=== PATIENT | female | born 1995 | race Caucasian/White ===

== ENCOUNTER → 2024-04-23 | Outpatient (CLI) | payer OTHER ==
--- NOTE | 2024-04-23 17:03 | US ---
EXAMINATION TYPE: US thyroid st tissue head/neck DATE OF EXAM: 04/23/2024 COMPARISON: NONE CLINICAL INDICATION: Female, 28 years old with history of E04.0 Nontoxic diffuse goiter; enlarged thy roid TECHNIQUE: Grayscale and color Doppler imaging of the thyroid gland. FINDINGS: GLAND SIZE: Right Lobe: 5.3 x 1.6 x 1.5 cm Overall Parenchyma: homogeneous Left Lobe: 4.6 x 1.3 x 1.4 cm Overall Parenchyma: homogeneous Isthmus Thickness: .3 cm NODULES RIGHT: # of nodules measured on right: 0 LEFT: # of nodules measured on left: 0 ISTHMUS: # of nodules measured in the isthmus: 0 Bilateral neck scanned, no evidence of lymphadenopathy. IMPRESSION: Mildly enlarged diffusely heterogenous thyroid gland without discrete nodule. [facility], , 04/23/2024 5:00 PM
== END | disposition home or self-care (01) ==
LOC: RADUSWWP 16:23
PROVIDERS: ATTEND Otolaryngology
DX: E04.0 Nontoxic diffuse goiter (principal)
CPT/HCPCS: 76536

== ENCOUNTER 2024-11-17 04:11 | Inpatient (IN) | payer OTHER ==
[2024-11-17] MEDS ORDERED: TRANEXAMIC 1,000 MG/100ML-NACL 1,000 MG in EMPTY BAG 1 BAG IV PRN (04:41)
[2024-11-17] MEDS ORDERED: miSOPROStoL 200 MCG TAB RECTAL PRN (04:41)
[2024-11-17] MEDS ORDERED: METHYLERGONOVINE 0.2 MG/ML 1 ML AMP IM PRN (04:41)
[2024-11-17] MEDS ORDERED: miSOPROStoL 200 MCG TAB PO PRN (04:41)
[2024-11-17] MEDS ORDERED: CARBOPROST TROMETHAMINE 250 MCG/ML 1 ML AMP IM PRN (04:41)
[2024-11-17] MEDS ORDERED: TERBUTALINE 1 MG/ML VIAL SQ PRN (04:41)
[2024-11-17] MEDS ORDERED: OXYTOCIN 30 UNITS/500 ML NS 30 UNIT in SALINE 1 500ML.BAG IV SCH ×2 (04:45→06:30)
[2024-11-17] MEDS: LACTATED RINGERS 1,000 ML IV SCH (05:03)
[2024-11-17] MEDS: PENICILLIN G POTASSIUM 5,000,000 UNIT in SODIUM CHLORIDE 0.9% 100 ML IVPB ONE (05:04)
--- NOTE | 2024-11-17 05:12 | P.HPOB ---
History of Present Illness H&P Date: 11/17/24 Chief Complaint: 40 and 1 sevenths weeks, active labor Patient is a 29-year-old 1 para 0 admitted at 40 and 1 sevenths weeks as established by 9-week ultrasound. She is admitted to triage in active labor at 7 to 8 cm of dilation with all signs reassuring, category 1 heart rate tracing. Her has been uncomplicated though she is Rh- and received RhoGAM at 28 weeks. 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 Group B strep status is positive. Obstetrical history: 1 para 0 with current statistics listed in history of present illness. EDC of 11/16/2024 was established by 9-week ultrasound. Laboratory workup demonstrates a blood type of O- with a negative antibody is immune. The remainder of the laboratory workup was within normal limits. 1 hour Glucola was normal and group B strep status is negative. Gynecologic history: Unremarkable with no history of any infections to include STDs. Review of Systems Review of systems is confined to history of present illness. Past Medical History History of Any Multi-Drug Resistant Organisms: None Reported Smoking Status: Never smoker Medications and Allergies Home Medications Medication Instructions Recorded Confirmed Type Aspirin 81 mg PO DAILY 11/17/24 11/17/24 History Levothyroxine Sodium 75 mcg PO DAILY 11/17/24 11/17/24 History Allergies Allergy/AdvReac Type Severity Reaction Status Date / Time No Known Allergies Allergy Verified 11/17/24 04:21 Exam Intake and Output 11/16/24 11/16/24 11/17/24 14:59 22:59 06:59 Other: Weight 86.183 kg In general, this is a well-developed, well-nourished white female in some discomfort as she is in active labor. Her heart has a regular rhythm and rate without murmur. Her lungs are clear to auscultation bilaterally in all [place]. Her abdomen is gravid, nondistended, has normal active bowel sounds, is soft, nontender, and without any palpable masses aside from the uterine fundus. Her extremities are without any cyanosis, clubbing, or edema and are nontender to palpation bilaterally. Digital cervical examination performed by the nursing staff demonstrates her cervix to be approximately 7 cm dilated, 100% effaced, with the vertex and presentation at -2 station. Assessment and Plan (1) Active labor at term Current Visit: Yes Status: Acute Code(s): DZX4581 - SNOMED Code(s): 80382248 (2) Group B streptococcal carriage complicating Current Visit: Yes Status: Acute Code(s): O99.820 - STREPTOCOCCUS B CARRIER STATE COMPLICATING SNOMED Code(s): 075695566532693 Plan: The patient is admitted for active management of labor. She will have close maternal and surveillance and expectant management will be practiced. Antibiotic prophylaxis will be started for group B strep positivity. Should she make no immediate or rapid progress, she is a candidate for an epidural catheter for analgesia.
[2024-11-17] MEDS: OXYTOCIN 10 UNIT/ML 1 ML VIAL IM PRN (06:10)
[2024-11-17] MEDS ORDERED: SIMETHICONE 80 MG CHEWABLE PO PRN (06:23)
[2024-11-17] MEDS ORDERED: LANOLIN CREAM 1 GM TUBE TOPICAL PRN (06:23)
[2024-11-17] MEDS ORDERED: diphenhydrAMINE 50 MG/ML 1 ML VIAL IVP PRN ×2 (06:23)
[2024-11-17] MEDS ORDERED: diphenhydrAMINE 25 MG CAP PO PRN (06:23)
[2024-11-17] MEDS ORDERED: diphenhydrAMINE 50 MG CAP PO PRN (06:23)
[2024-11-17] MEDS ORDERED: BENZOCAINE/MENTHOL SPRAY 1 GM/SPRAY AEROSOL TOPICAL PRN (06:23)
[2024-11-17] MEDS ORDERED: ZOLPIDEM 5 MG TAB PO PRN (06:23)
[2024-11-17] MEDS ORDERED: HYDROCORTISONE 2.5% RECTAL CREAM 30 GM TUBE RECTAL PRN (06:23)
--- NOTE | 2024-11-17 06:28 | P.PROBDLV ---
Vaginal Delivery Note - . Vaginal Delivery Note: Date of service/Delivery: 11/17/2024 The patient is a 29-year-old 1 para 0 admitted at 40 and 1/7 weeks by good dating parameters. She is admitted in active labor with all signs reassuring, category 1 heart rate tracing. Her has been essentially uncomplicated and group B strep status is positive. Rupture of membranes is unclear as to when it may have occurred as the patient has no recollection of leaking fluid anytime during the process. Antibiotic prophylaxis was started but the patient progressed quickly to complete. She pushed over the course of approximately 40 minutes to a normal spontaneous vaginal delivery of a viable 7 pound 13 ounce baby girl with Apgars of 8 at 1 minute and 9 at 5 minutes delivered in the right occiput anterior position. The placenta was delivered spontaneously, intact, and grossly normal with a grossly normal three-vessel cord inserted approximately 5 to 6 cm from the margin of the placental disc. There was a small second-degree midline perineal laceration repaired in standard fashion using 3-0 chromic catgut without difficulty. Estimated blood loss was approximately 150 mL. There were no complications. All sponge, instrument, and needle counts were correct. Both mother and infant are resting comfortably in recovery.
[2024-11-17] MEDS: LIDOCAINE 0.5% (PF) 5 MG/ML (50 ML SDV) SQ PRN (07:04)
[2024-11-17 07:25] LABS: HCT 38.6 % (37.2-46.3); HGB 13.6 g/dL (12.0-15.0); Immature Platelet Fraction 14.7 % (1.1-6.1); MCH 32.7 pg (27.0-32.0); MCHC 35.2 g/dL (32.0-37.0); MCV 92.8 fL (80.0-97.0); Mean Platelet Volume 9.4 fL (9.5-12.2); RBC 4.16 10*6/uL (4.10-5.20); RDW 12.1 % (11.5-14.5); WBC 14.62 10*3/uL (4.50-10.00)
[2024-11-17] MEDS ORDERED: PENICILLIN G POTASSIUM 2,500,000 UNIT in SODIUM CHLORIDE 0.9% 100 ML IVPB SCH (09:00)
[2024-11-17 09:41] LABS: Lymphocytes # (M) 1.46 k/uL (1.0-4.8); Monocytes # (M) 0.15 k/uL (0-1.0); Neutrophils # (M) 13.01 k/uL (1.3-7.7); Neutrophils % (M) 89 %; Nucleated Red Blood Cells 0 /100 WBC (0-0); Total Cells Counted 100
[2024-11-17] MEDS: Rhogam IMMUNE GLOBULIN 1,500 UNIT/1 ML IM ONE (14:09)
[2024-11-17] MEDS: IBUPROFEN 800 MG TAB PO PRN (18:26)
[2024-11-17] MEDS: SENNOSIDES-DOCUSATE SODIUM 1 EACH TAB PO SCH (20:16)
[2024-11-17] MEDS: ACETAMINOPHEN TAB 500 MG TAB PO PRN (23:33)
[2024-11-17 23:50] VITALS: TEMP 98.1
[2024-11-18 06:19] LABS: Basophils # (A) 0.06 10*3/uL (0.00-0.10); Basophils % (A) 0.6 %; Eosinophils # (A) 0.08 10*3/uL (0.04-0.35); Eosinophils % (A) 0.7 %; HCT 35.4 % (37.2-46.3); HGB 12.4 g/dL (12.0-15.0); Lymphocytes # (A) 1.92 10*3/uL (0.90-5.00); MCH 33.2 pg (27.0-32.0); MCV 94.7 fL (80.0-97.0); Mean Platelet Volume 10.1 fL (9.5-12.2); Monocytes # (A) 0.78 10*3/uL (0.20-1.00); Monocytes % (A) 7.3 %; Neutrophils # (A) 7.79 10*3/uL (1.80-7.70); RBC 3.74 10*6/uL (4.10-5.20); RDW 12.6 % (11.5-14.5); WBC 10.67 10*3/uL (4.50-10.00)
--- NOTE | 2024-11-18 08:29 | P.DS ---
Providers Date of admission: 11/17/24 04:34 Expected date of discharge: 11/18/24 Attending physician: Jennifer Quintana MD Primary care physician: Stated None Hospital Course: 29 year old PPD#1 s/p without complications. She is doing well this morning and desires discharge home. She is ambulating, voiding, eating normally. is going well. Reviewed restrictions of pelvic rest for 6 weeks. Discussed reasons to call the office including fever, chills, heavy bleeding, foul-smelling vaginal discharge, or breast concerns. She will follow up with me i the office in 6 weeks. Patient Condition at Discharge: Good Plan - Discharge Summary New Discharge Prescriptions: New Docusate [Colace] 100 mg PO BID PRN #60 capsule PRN Reason: Constipation Acetaminophen Tab [Tylenol] 650 mg PO Q6H PRN #30 tab PRN Reason: Mild Pain (Scale 1 To 3) Ibuprofen [Motrin] 600 mg PO Q6HR PRN #30 tab PRN Reason: Mild Pain (Scale 1 To 3) No Action Levothyroxine Sodium 75 mcg PO DAILY Aspirin 81 mg PO DAILY Discharge Medication List Aspirin 81 mg PO DAILY 11/17/24 [History] Levothyroxine Sodium 75 mcg PO DAILY 11/17/24 [History] Acetaminophen Tab [Tylenol] 650 mg PO Q6H PRN #30 tab 11/18/24 [Rx] Docusate [Colace] 100 mg PO BID PRN #60 capsule 11/18/24 [Rx] Ibuprofen [Motrin] 600 mg PO Q6HR PRN #30 tab 11/18/24 [Rx] Follow up Appointment(s)/Referral(s): Jennifer Quintana MD [STAFF PHYSICIAN] - 12/29/24 11:30 am Activity/Diet/Wound Care/Special Instructions: Nothing in the vagina for 6 weeks including sexual intercourse, swimming, or tampons. Discharge Disposition: HOME SELF-CARE
[2024-11-18 09:23] VITALS: BP 124/74; PULSE 70; RESP 16
== END 2024-11-18 11:50 | disposition home or self-care (01) | DRG 807 ==
LOC: FBPOP 04:11 → 4FBP 04:34
PROVIDERS: ADMIT Obstetrics & Gynecology; ATTEND Obstetrics & Gynecology
PROC: 10E0XZZ Delivery of Products of Conception, External Approach (ICD-10-PCS; principal; 2024-11-17)
PROC: 0KQM0ZZ Repair Perineum Muscle, Open Approach (ICD-10-PCS; 2024-11-17)
DX: O42.92 Full-term premature rupture of membranes, unspecified as to length of time between rupture and onset of labor (principal); Z37.0 Single live birth; O48.0 Post-term pregnancy; O99.824 Streptococcus B carrier state complicating childbirth; O70.1 Second degree perineal laceration during delivery; Z3A.40 40 weeks gestation of pregnancy; Z79.82 Long term (current) use of aspirin; Z79.890 Hormone replacement therapy
CPT/HCPCS: 85025; 85461; 86850; 86900; 86901; 99213